=== PATIENT | male | born 1965 | race Hispanic/Latino ===

== ENCOUNTER 2022-07-15 14:55 | Emergency (ER) | payer OTHER ==
[2022-07-15 15:54] LABS: #Basophils 0.1 10x3/uL (0.0-0.2); #Eosinphils 0.2 10x3/uL (0.0-0.5); #Monocytes 0.6 10x3/uL (0.0-1.1); #Neutrophils 5.2 10x3/uL (1.5-8.4); %Basophils 0.7 % (0.0-2.0); %Lymphocytes 26.4 % (18.0-47.0); %Monocytes 7.7 % (0.0-10.0); %Neutrophils 62.5 % (40.0-75.0); Hemoglobin 12.8 g/dL (13.5-17.5); Mean Corpuscular HGB CONC 32.6 g/dL (32.0-36.0); Mean Corpuscular Volume 88.9 fl (81.2-95.1); Mean Platelet Volume 10.5 fl (7.4-10.4); Platelet Count 234 10x3/uL (150-450); RBC Distribution Width 12.6 % (11.5-14.5); Red Blood Cell (RBC) Count 4.42 10x6/uL (4.32-5.72); White Blood Cell (WBC) Count 8.3 10x3/uL (3.5-10.5)
[2022-07-15 16:06] LABS: INR-International Normal Ratio 0.9; PTT 27.8 sec (22.0-33.0)
[2022-07-15 16:10] LABS: ALT (SGPT) 17 U/L (8-55); AST (SGOT) 14 U/L (5-34); Albumin 3.9 g/dL (3.5-5.0); Alkaline Phosphatase 101 U/L (40-110); Anion Gap 13 mmol/L (10-20); BUN (Urea Nitrogen) 16 mg/dL (8.4-25.7); Bilirubin, Total 0.3 mg/dL (0.2-1.2); Calc. Creatinine Clearance 0 mL/min (70-130); Calcium 8.9 mg/dL (7.8-10.44); Carbon Dioxide 28 mmol/L (22-29); Chloride 102 mmol/L (98-107); Estimated GFR 76; Globulin 3.4 g/dL (2.4-3.5); Glucose 212 mg/dL (70-105); Potassium 5.2 mmol/L (3.5-5.1); Protein, Total 7.3 g/dL (6.0-8.3); Sodium 138 mmol/L (136-145)
[2022-07-15] MEDS ORDERED: Ketorolac Tromethamine 30 MG/ML VIAL ONE (18:16)
[2022-07-15 20:44] LABS: CKMB 1.7 ng/mL (0-6.6)
== END 2022-07-15 21:15 ==
LOC: CSHERS 14:55
DX: L03.115 Cellulitis of right lower limb (principal); Z87.891 Personal history of nicotine dependence
CPT/HCPCS: 36415; 71045; 80053; 82553; 83880; 84484; 85025; 85610; 85730; 93005; 96372; J1885

== ENCOUNTER 2023-02-22 11:34 | Inpatient (IN) | payer OTHER ==
[2023-02-22] MEDS ORDERED: Cefepime 2 GM VIAL ONE (12:29)
[2023-02-22 12:50] LABS: #Basophils 0.1 10x3/uL (0.0-0.2); #Eosinphils 0.1 10x3/uL (0.0-0.5); #Monocytes 1.2 10x3/uL (0.0-1.1); %Basophils 0.4 % (0.0-2.0); %Eosinophils 0.4 % (0.0-6.0); %Lymphocytes 12.4 % (18.0-47.0); %Monocytes 8.3 % (0.0-10.0); %Neutrophils 77.9 % (40.0-75.0); Hemoglobin 11.3 g/dL (13.5-17.5); Mean Corpuscular HGB CONC 33.2 g/dL (32.0-36.0); Mean Corpuscular Hemoglobin 29.3 pg (27.0-33.0); Mean Corpuscular Volume 88.1 fl (81.2-95.1); Platelet Count 182 10x3/uL (150-450); RBC Distribution Width 13.9 % (11.5-14.5); Red Blood Cell (RBC) Count 3.86 10x6/uL (4.32-5.72); White Blood Cell (WBC) Count 14.2 10x3/uL (3.5-10.5)
[2023-02-22 13:04] LABS: ALT (SGPT) 24 U/L (8-55); AST (SGOT) 13 U/L (5-34); Albumin 3.4 g/dL (3.5-5.0); Alkaline Phosphatase 62 U/L (40-110); Anion Gap 15 mmol/L (10-20); BUN (Urea Nitrogen) 18 mg/dL (8.4-25.7); Bilirubin, Total 0.6 mg/dL (0.2-1.2); Calc. Creatinine Clearance 0 mL/min (70-130); Calcium 8.7 mg/dL (7.8-10.44); Carbon Dioxide 23 mmol/L (22-29); Chloride 102 mmol/L (98-107); Estimated GFR 87; Globulin 3.5 g/dL (2.4-3.5); Glucose 213 mg/dL (70-105); Potassium 4.5 mmol/L (3.5-5.1); Protein, Total 6.9 g/dL (6.0-8.3); Sodium 135 mmol/L (136-145)
[2023-02-22] MEDS ORDERED: Morphine 10 MG/ML VIAL ONE (13:21)
[2023-02-22] MEDS ORDERED: Vancomycin 1 GM VIAL ONE (13:22)
[2023-02-23] MEDS ORDERED: Cefepime 2 GM VIAL ONE ×2 (02:51→12:28)
[2023-02-23] MEDS ORDERED: Morphine 4 MG/ML VIAL ONE (02:51)
[2023-02-23] MEDS ORDERED: Vancomycin 1.5 GRAM/300 ML BAG 1.5 GM in Premix 1 BAG IVPB SCH (03:30)
[2023-02-23 08:04] LABS: #Basophils 0.1 10x3/uL (0.0-0.2); #Eosinphils 0.2 10x3/uL (0.0-0.5); #Monocytes 1.4 10x3/uL (0.0-1.1); #Neutrophils 6.7 10x3/uL (1.5-8.4); %Basophils 0.8 % (0.0-2.0); %Eosinophils 1.5 % (0.0-6.0); %Lymphocytes 18.1 % (18.0-47.0); %Monocytes 13.3 % (0.0-10.0); %Neutrophils 65.3 % (40.0-75.0); Hematocrit 33.2 % (38.8-50.0); Hemoglobin 10.9 g/dL (13.5-17.5); Mean Corpuscular HGB CONC 32.8 g/dL (32.0-36.0); Mean Corpuscular Hemoglobin 29.5 pg (27.0-33.0); Mean Platelet Volume 10.8 fl (7.4-10.4); Platelet Count 185 10x3/uL (150-450); Red Blood Cell (RBC) Count 3.69 10x6/uL (4.32-5.72); White Blood Cell (WBC) Count 10.2 10x3/uL (3.5-10.5)
[2023-02-23 08:16] LABS: ALT (SGPT) 18 U/L (8-55); AST (SGOT) 13 U/L (5-34); Albumin 3.1 g/dL (3.5-5.0); Alkaline Phosphatase 67 U/L (40-110); Anion Gap 14 mmol/L (10-20); BUN (Urea Nitrogen) 16 mg/dL (8.4-25.7); Bilirubin, Total 0.5 mg/dL (0.2-1.2); Calc. Creatinine Clearance 0 mL/min (70-130); Calcium 8.1 mg/dL (7.8-10.44); Carbon Dioxide 18 mmol/L (22-29); Chloride 107 mmol/L (98-107); Estimated GFR 103; Globulin 3.4 g/dL (2.4-3.5); Glucose 210 mg/dL (70-105); Potassium 4.2 mmol/L (3.5-5.1); Protein, Total 6.5 g/dL (6.0-8.3); Sodium 135 mmol/L (136-145)
[2023-02-23 09:09] LABS: Lymphocytes 16 % (21-51); Monocytes 12 % (0-10); Reactive Lymphocytes 5 % (0-10)
[2023-02-23 09:13] LABS: Band 13 % (5-11); Neutrophil 49 % (42-75)
[2023-02-23 09:14] LABS: Eosinophils 4 % (0-10); Platelet Adequacy Comment Appears Adequate; Platelet Clumps MODERATE; RBC Morph Comment Within Normal Limits; Toxic Granulation SLIGHT
[2023-02-23] MEDS ORDERED: Aspirin Chewable 81 MG TAB ONE (12:22)
[2023-02-23] MEDS ORDERED: metFORMIN 500 MG TAB ONE (12:22)
[2023-02-23] MEDS ORDERED: HYDROcodone/Acetaminophen 5/325 mg Tablet ONE (12:27)
[2023-02-23] MEDS ORDERED: Pepto Bismol Chew TAB PO SCH (13:00)
[2023-02-23] MEDS ORDERED: FLUoxetine HCl 20 MG CAP PO SCH (13:00)
[2023-02-23] MEDS ORDERED: Empagliflozin 10 MG TAB PO SCH (13:00)
[2023-02-23] MEDS ORDERED: dilTIAZem CD 180 MG CAP PO SCH (13:00)
[2023-02-23] MEDS ORDERED: Bumetanide 1 MG TAB PO SCH (13:00)
[2023-02-23] MEDS ORDERED: Insulin NPH Human Isophane 100 UNITS/ML (10 ML VIAL) SC SCH (14:00)
[2023-02-23] MEDS ORDERED: Insulin Regular 300 UNITS/3 ML VIAL ONE (18:17)
[2023-02-24] MEDS ORDERED: Cefepime 2 GM VIAL ONE ×2 (00:40→11:10)
[2023-02-24] MEDS ORDERED: Acetaminophen 500 MG TAB ONE (00:50)
[2023-02-24] MEDS ORDERED: Morphine 4 MG/ML VIAL ONE (09:14)
[2023-02-24] MEDS ORDERED: Ketorolac Tromethamine 30 MG/ML VIAL ONE (09:14)
[2023-02-24] MEDS ORDERED: Acetaminophen 325 MG TAB PO PRN (09:28)
[2023-02-24] MEDS ORDERED: Ondansetron ODT 4 MG TAB PO PRN (09:28)
[2023-02-24] MEDS ORDERED: Ondansetron PF 4 MG/2 ML Vial IVP PRN (09:28)
[2023-02-24] MEDS ORDERED: Dextrose 5% in Water 1,000 ML IV PRN (09:31)
[2023-02-24] MEDS ORDERED: Glucagon 1 MG/ML KIT IM PRN (09:31)
[2023-02-24] MEDS ORDERED: Dextrose 50% Abboject 50 ML SYRINGE SLOW IVP PRN (09:31)
[2023-02-24] MEDS ORDERED: HumaLOG 300 UNITS/3 ML VIAL SC PRN (09:31)
[2023-02-24] MEDS ORDERED: VANCOMYCIN IVPB PRN (09:40)
[2023-02-24 10:12] VITALS: BMI 40.0
[2023-02-24] MEDS: Cefepime 2 GM in Sodium Chloride 0.9% 100 ML IVPB SCH ×2 (11:18→23:23)
[2023-02-24] MEDS: Vancomycin 1.5 GRAM/300 ML BAG 1.5 GM in Premix 1 BAG IVPB SCH (12:20)
[2023-02-24] MEDS ORDERED: FLU VACC QS2023-24(6MOS UP)/PF 60 MCG/0.5 ML SYRINGE IM ONE (19:15)
[2023-02-24] MEDS: HYDROcodone/Acetaminophen 5/325 mg Tablet PO PRN (20:48)
[2023-02-25] MEDS: Vancomycin 1.5 GRAM/300 ML BAG 1.5 GM in Premix 1 BAG IVPB SCH ×2 (00:31→14:05)
[2023-02-25 04:52] LABS: #Basophils 0.1 10x3/uL (0.0-0.2); #Eosinphils 0.2 10x3/uL (0.0-0.5); #Monocytes 0.8 10x3/uL (0.0-1.1); %Basophils 0.9 % (0.0-2.0); %Eosinophils 2.1 % (0.0-6.0); %Lymphocytes 20.7 % (18.0-47.0); %Monocytes 8.8 % (0.0-10.0); %Neutrophils 63.5 % (40.0-75.0); Hematocrit 33.4 % (38.8-50.0); Mean Corpuscular HGB CONC 32.9 g/dL (32.0-36.0); Mean Corpuscular Hemoglobin 29.3 pg (27.0-33.0); Mean Corpuscular Volume 89.1 fl (81.2-95.1); Mean Platelet Volume 10.7 fl (7.4-10.4); Platelet Count 224 10x3/uL (150-450); RBC Distribution Width 13.5 % (11.5-14.5); Red Blood Cell (RBC) Count 3.75 10x6/uL (4.32-5.72); White Blood Cell (WBC) Count 9.4 10x3/uL (3.5-10.5)
[2023-02-25 05:01] LABS: Anion Gap 14 mmol/L (10-20); BUN (Urea Nitrogen) 16 mg/dL (8.4-25.7); Calc. Creatinine Clearance 186 mL/min (70-130); Calcium 8.4 mg/dL (7.8-10.44); Carbon Dioxide 24 mmol/L (22-29); Chloride 105 mmol/L (98-107); Estimated GFR 103; Glucose 163 mg/dL (70-105); Sodium 139 mmol/L (136-145)
[2023-02-25] MEDS: HYDROcodone/Acetaminophen 5/325 mg Tablet PO PRN ×2 (11:26→20:19)
[2023-02-25] MEDS: Cefepime 2 GM in Sodium Chloride 0.9% 100 ML IVPB SCH ×2 (11:28→23:46)
[2023-02-25] MEDS: HumaLOG 300 UNITS/3 ML VIAL SC PRN (16:34)
[2023-02-25] MEDS: Lantus 1000 UNITS/10 ML VIAL SC SCH (20:18)
[2023-02-25 23:27] LABS: Vancomycin, Trough 12.9 ug/mL
[2023-02-26] MEDS: Vancomycin 1.5 GRAM/300 ML BAG 1.5 GM in Premix 1 BAG IVPB SCH (00:41)
[2023-02-26] MEDS ORDERED: Amlodipine 5 MG TAB PO SCH (02:00)
[2023-02-26 04:51] LABS: Anion Gap 13 mmol/L (10-20); BUN (Urea Nitrogen) 15 mg/dL (8.4-25.7); Calc. Creatinine Clearance 200 mL/min (70-130); Calcium 8.6 mg/dL (7.8-10.44); Carbon Dioxide 22 mmol/L (22-29); Chloride 106 mmol/L (98-107); Estimated GFR 105; Glucose 220 mg/dL (70-105); Sodium 137 mmol/L (136-145)
[2023-02-26] MEDS ORDERED: hydrALAZINE 20 MG/ML VIAL SLOW IVP SCH (05:45)
[2023-02-26 06:11] LABS: MDiff Complete? YES
[2023-02-26 06:12] LABS: Band 5 % (5-11); Eosinophils 1 % (0-10); Lymphocytes 26 % (21-51); Metamyelocyte 3 % (0-0); Monocytes 6 % (0-10); Myelocyte 1 % (0-0); Neutrophil 55 % (42-75); Reactive Lymphocytes 3 % (0-10)
[2023-02-26 06:13] LABS: Platelet Adequacy Comment Appears Adequate; RBC Morph Comment Within Normal Limits
[2023-02-26 06:14] LABS: Hematocrit 34.6 % (38.8-50.0); Hemoglobin 11.5 g/dL (13.5-17.5); Mean Corpuscular HGB CONC 33.2 g/dL (32.0-36.0); Mean Corpuscular Volume 87.2 fl (81.2-95.1); Mean Platelet Volume 10.3 fl (7.4-10.4); Platelet Count 272 10x3/uL (150-450); RBC Distribution Width 13.4 % (11.5-14.5); Red Blood Cell (RBC) Count 3.97 10x6/uL (4.32-5.72); White Blood Cell (WBC) Count 9.1 10x3/uL (3.5-10.5)
[2023-02-26] MEDS: HumaLOG 300 UNITS/3 ML VIAL SC PRN ×3 (06:52→16:55)
[2023-02-26] MEDS: dilTIAZem CD 180 MG CAP PO SCH (10:02)
[2023-02-26] MEDS: FLUoxetine HCl 20 MG CAP PO SCH (10:02)
[2023-02-26] MEDS: Aspirin 81 mg Enteric Coated Tablet PO SCH (10:02)
[2023-02-26] MEDS: Atorvastatin Calcium 20 MG TAB PO SCH (10:02)
[2023-02-26] MEDS: Bumetanide 1 MG TAB PO SCH (10:02)
[2023-02-26] MEDS: cefTRIAXone\\ROCEPHIN 2 GM in Sodium Chloride 0.9% 100 ML IVPB SCH (10:42)
[2023-02-26] MEDS: HYDROcodone/Acetaminophen 5/325 mg Tablet PO PRN ×2 (16:55→20:42)
[2023-02-26] MEDS: Lantus 1000 UNITS/10 ML VIAL SC SCH (20:44)
[2023-02-26] MEDS ORDERED: carBAMazepine 200 MG TAB PO SCH (21:00)
[2023-02-27 03:51] LABS: Hematocrit 35.2 % (38.8-50.0); Hemoglobin 11.7 g/dL (13.5-17.5); Mean Corpuscular HGB CONC 33.2 g/dL (32.0-36.0); Mean Corpuscular Hemoglobin 29.3 pg (27.0-33.0); Mean Platelet Volume 10.2 fl (7.4-10.4); Platelet Count 286 10x3/uL (150-450); RBC Distribution Width 13.4 % (11.5-14.5); White Blood Cell (WBC) Count 8.8 10x3/uL (3.5-10.5)
[2023-02-27 03:58] LABS: MDiff Complete? YES
[2023-02-27 04:06] LABS: Anion Gap 13 mmol/L (10-20); BUN (Urea Nitrogen) 18 mg/dL (8.4-25.7); Calc. Creatinine Clearance 188 mL/min (70-130); Calcium 8.5 mg/dL (7.8-10.44); Carbon Dioxide 23 mmol/L (22-29); Chloride 103 mmol/L (98-107); Estimated GFR 103; Glucose 223 mg/dL (70-105); Potassium 3.8 mmol/L (3.5-5.1); Sodium 135 mmol/L (136-145)
[2023-02-27 04:32] LABS: Platelet Adequacy Comment Appears Adequate; RBC Morph Comment Within Normal Limits
[2023-02-27 04:35] LABS: Band 10 % (5-11); Eosinophils 3 % (0-10); Lymphocytes 29 % (21-51); Monocytes 7 % (0-10); Neutrophil 51 % (42-75)
[2023-02-27] MEDS: HumaLOG 300 UNITS/3 ML VIAL SC PRN ×2 (05:28→12:08)
[2023-02-27] MEDS: Aspirin 81 mg Enteric Coated Tablet PO SCH (08:25)
[2023-02-27] MEDS: dilTIAZem CD 180 MG CAP PO SCH (08:25)
[2023-02-27] MEDS: Atorvastatin Calcium 20 MG TAB PO SCH (08:25)
[2023-02-27] MEDS: FLUoxetine HCl 20 MG CAP PO SCH (08:26)
[2023-02-27] MEDS: Bumetanide 1 MG TAB PO SCH (08:26)
[2023-02-27] MEDS: Cefepime 2 GM in Sodium Chloride 0.9% 100 ML IVPB SCH (11:53)
[2023-02-27] MEDS: cefTRIAXone\\ROCEPHIN 2 GM in Sodium Chloride 0.9% 100 ML IVPB SCH (11:57)
[2023-02-27 12:06] VITALS: BP 139/68; TEMP 97.8
== END 2023-02-27 14:38 | DRG 603 ==
LOC: CSHERS 11:34 → EEVIPCON 11:34 → CSHERHOLD 02-24 09:12 → CSHTELE 02-24 16:09
PROVIDERS: ADMIT Internal Medicine; ATTEND Internal Medicine
PROC: 5A09457 Assistance with Respiratory Ventilation, 24-96 Consecutive Hours, Continuous Positive Airway Pressure (ICD-10-PCS; principal; 2023-02-25)
DX: L03.115 Cellulitis of right lower limb (principal); I13.0 Hypertensive heart and chronic kidney disease with heart failure and stage 1 through stage 4 chronic kidney disease, or unspecified chronic kidney disease; Z68.41 Body mass index [BMI] 40.0-44.9, adult; E78.5 Hyperlipidemia, unspecified; M19.90 Unspecified osteoarthritis, unspecified site; F32.89 Other specified depressive episodes; I50.9 Heart failure, unspecified; N18.9 Chronic kidney disease, unspecified; E11.22 Type 2 diabetes mellitus with diabetic chronic kidney disease; G47.33 Obstructive sleep apnea (adult) (pediatric); D72.829 Elevated white blood cell count, unspecified; E66.01 Morbid (severe) obesity due to excess calories; Z98.890 Other specified postprocedural states; Z79.4 Long term (current) use of insulin; Z79.82 Long term (current) use of aspirin
CPT/HCPCS: 36415; 36416; 80048; 80053; 80202; 83605; 85025; 86140; 87040; 87081; 93005; 93306; 94660; 94760; 96365; 96366; 96367; 96375; 96376; J0360; J0692; J0696; J1650; J1815; J1885; J2270; J3370; J3490